=== PATIENT | male | born 1940 | race African-American/Black ===

== ENCOUNTER 2017-02-18 14:38 | Emergency (ER) | payer OTHER ==
[~2017-02-18] VITALS: Ht 172.7 cm; Wt 59.0 kg
[~2017-02-18 14:38] MED LIST: ATOR40TA70 PO; CARV12.545 PO; SULF1TAB47 PO; TAMS0.4C31 PO
[2017-02-18] MEDS ORDERED: CLINDAMYCIN 600 MG in DEXTROSE 5% WATER 50 ML IV ONE (19:15)
[2017-02-18] MEDS: SODIUM POLYSTYRENE SULFONATE 15 G/60 ML BOT PO ONE ×3 (20:50→21:50)
[2017-02-18 22:00] VITALS: BP 176/82
== END 2017-02-18 22:07 | disposition home or self-care (01) ==
LOC: ER 15:14
DX: I12.0 Hypertensive chronic kidney disease with stage 5 chronic kidney disease or end stage renal disease (principal); N18.6 End stage renal disease; E78.00 Pure hypercholesterolemia, unspecified; Z88.0 Allergy status to penicillin; Z99.2 Dependence on renal dialysis
CPT/HCPCS: 36415; 80048; 99283; J3490; J7060

== ENCOUNTER 2017-03-29 19:52 | Emergency (ER) | payer OTHER ==
[~2017-03-29] VITALS: Ht 170.2 cm; Wt 68.0 kg
[2017-03-29] MEDS ORDERED: HYDROCODONE/ACETAMINOPHEN 5/325MG TABLET PO ONE (20:45)
[2017-03-29] MEDS ORDERED: MORPHINE SULFATE 4 MG/ML CPJ (NOT FOR IM USE) IV NR (21:15)
[2017-03-29] MEDS ORDERED: KETOROLAC 30MG/ML VIAL IV NR (21:15)
[2017-03-29] MEDS ORDERED: KETAMINE HCL 50 MG/ML 10ML IV ONE (23:30)
[2017-03-29] MEDS ORDERED: PROPOFOL 200MG/20ML VIAL IV ONE (23:30)
[2017-03-30 01:19] VITALS: BP 154/97
== END 2017-03-30 03:20 | disposition home or self-care (01) ==
LOC: ER 20:18
DX: S43.085A Other dislocation of left shoulder joint, initial encounter (principal); I10 Essential (primary) hypertension; W01.0XXA Fall on same level from slipping, tripping and stumbling without subsequent striking against object, initial encounter; Y93.89 Activity, other specified; Y99.8 Other external cause status; Y92.89 Other specified places as the place of occurrence of the external cause; Z86.73 Personal history of transient ischemic attack (TIA), and cerebral infarction without residual deficits; Z99.2 Dependence on renal dialysis; Z88.0 Allergy status to penicillin
CPT/HCPCS: 23650; 73030; 96374; 96375; 99152; 99153; 99285; J1885; J2270; J3490; J7030; J2704; L3670

== ENCOUNTER 2018-03-23 14:06 | Inpatient (IN) | payer MEDICARE, OTHER ==
[~2018-03-23] VITALS: Ht 170.2 cm; Wt 55.9 kg
[2018-03-23] MEDS ORDERED: SODIUM CHLORIDE 0.9% 1,000 ML IV ONE (14:33)
[2018-03-23] MEDS ORDERED: LEVOFLOXACIN 750MG PREMIX 150 ML IV ONE ×2 (14:45→20:30)
[2018-03-23] MEDS ORDERED: VANCOMYCIN 1 G PREMIX 200 ML IV ONE (14:45)
[2018-03-23 15:51] LABS: CHLORIDE 116 mEq/L (98-107)
[2018-03-23 15:53] LABS: HEMATOCRIT. 39.9 % (42.0-52.0); HEMOGLOBIN. 12.8 g/dL (14.0-18.0); MEAN CORPUSCULAR VOLUME 90.3 fL (80.0-94.0); MEAN PLATELET VOLUME 8.7 fl (7.4-10.4); PLATELET 129 x1000/uL (130-400); RED BLOOD CELL COUNT 4.42 mill/uL (4.7-6.1); RED CELL DISTRIBUTION WIDTH 16.3 % (11.6-14.6)
[2018-03-23 15:54] LABS: INR 1.1
[2018-03-23 15:59] LABS: ETHANOL BLOOD < 10 mg/dL
[2018-03-23 16:02] LABS: CREATINE KINASE 218 IU/L (39-308)
[2018-03-23] MEDS ORDERED: CALCIUM CHLORIDE 1GM/10ML SYR IV ONE (16:15)
[2018-03-23] MEDS ORDERED: SODIUM BICARBONATE 8.4% 1 MEQ/ML 50ML SYR IV ONE (16:15)
[2018-03-23] MEDS ORDERED: SODIUM POLYSTYRENE SULFONATE 15 G/60 ML BOT PO ONE (16:15)
[2018-03-23 16:39] LABS: PLATELET ESTIMATE SLIGHTLY DECREASED
[2018-03-23] MEDS ORDERED: CLONIDINE 0.1MG TABLET PO PRN (17:45)
[2018-03-23] MEDS ORDERED: GUAIFENESIN 200MG/10ML SUGAR FREE UDC PO PRN (17:45)
[2018-03-23] MEDS ORDERED: LORAZEPAM 0.5MG TABLET PO PRN (17:45)
[2018-03-23] MEDS ORDERED: MAGNESIUM/ALUMINUM HYDROXIDE/SIMETHICONE 30ML UDC PO PRN (17:45)
[2018-03-23] MEDS ORDERED: DIPHENHYDRAMINE 50MG/ML VIAL IV PRN (17:45)
[2018-03-23] MEDS ORDERED: ACETAMINOPHEN 650MG SUPP PR PRN (17:45)
[2018-03-23] MEDS ORDERED: NA PHOS,M-B/NA PHOS,DI-BA ENEMA 118ML PR PRN (17:45)
[2018-03-23] MEDS ORDERED: ONDANSETRON HCL 4MG/2ML INJ IV PRN (17:45)
[2018-03-23 18:37] LABS: BG BASE EXCESS -9.2 mmol/L (-2.0-2.0); BG CARBOXYHEMOGLOBIN 0.3 % (0.5-1.5); BG DEOXYHEMOGLOBIN 1.9 % (0.0-5.0); BG FRACTION INSPIRED OXYGEN 21; BG METHEMOGLOBIN 0.3 % (0.0-1.5); BG OXYGEN SATURATION 98.1 % (92.0-98.5); BG OXYHEMOGLOBIN 97.5 % (94.0-97.0); BG PCO2 38.5 mmHg (35.0-45.0); BG PH 7.264 (7.350-7.450); BG SAMPLE SITE RIGHT BRACHIAL; BG TOTAL HEMOGLOBIN 10.4 g/dL (12.0-18.0); BG VENT MODE ROOM AIR
[2018-03-23] MEDS ORDERED: SODIUM POLYSTYRENE SULFONATE 15 G/60 ML BOT PR ONE (19:00)
[2018-03-23] MEDS ORDERED: SODIUM POLYSTYRENE SULFONATE 15 G/60 ML BOT PR NR (20:45)
[2018-03-24] VITALS (11 sets, daily range): BP systolic 89–150; BP diastolic 44–93
[2018-03-24] MEDS ORDERED: DEXT 5%/0.45% NACL 1000ML 1,000 ML IV SCH
[2018-03-24 01:02] LABS: BG CARBOXYHEMOGLOBIN 0.3 % (0.5-1.5); BG DEOXYHEMOGLOBIN 2.4 % (0.0-5.0); BG FRACTION INSPIRED OXYGEN 21; BG HCO3 ACT 15.6 mmol/L (22.0-26.0); BG METHEMOGLOBIN 0.2 % (0.0-1.5); BG OXYGEN SATURATION 97.6 % (92.0-98.5); BG OXYHEMOGLOBIN 97.1 % (94.0-97.0); BG PCO2 37.7 mmHg (35.0-45.0); BG PH 7.235 (7.350-7.450); BG PO2 113.7 mmHg (75.0-100.0); BG SAMPLE SITE LEFT RADIAL; BG TOTAL HEMOGLOBIN 10.4 g/dL (12.0-18.0); BG VENT MODE ROOM AIR
[2018-03-24 07:27] LABS: CHLORIDE 120 mEq/L (98-107)
[2018-03-24 07:28] LABS: HEMATOCRIT. 31.7 % (42.0-52.0); HEMOGLOBIN. 10.2 g/dL (14.0-18.0); MEAN CORPUSCULAR HEMOGLOBIN 29.1 pg (28.0-32.0); MEAN CORPUSCULAR VOLUME 90.2 fL (80.0-94.0); MEAN PLATELET VOLUME 8.9 fl (7.4-10.4); PLATELET 118 x1000/uL (130-400); RED BLOOD CELL COUNT 3.51 mill/uL (4.7-6.1); RED CELL DISTRIBUTION WIDTH 16.2 % (11.6-14.6)
[2018-03-24 07:41] LABS: T4 FREE 1.06 ng/dL (0.76-1.46)
[2018-03-24 07:42] LABS: HDL CHOLESTEROL 67 mg/dL (40-59); LDL CHOLESTEROL 55 mg/dL (5-100)
[2018-03-24] MEDS: PANTOPRAZOLE SODIUM 40 MG/VIAL IV SCH (09:12)
[2018-03-24] MEDS: HYDROCODONE/ACETAMINOPHEN 5/325MG TABLET PO PRN (11:08)
[2018-03-24] MEDS: LEVOTHYROXINE SODIUM 25MCG TABLET PO SCH (13:45)
[2018-03-24] MEDS: DEXTROSE 5% WATER 1,000 ML IV SCH (14:00)
[2018-03-24 14:11] LABS: NUCLEATED RED BLOOD CELLS 1 /100 WBC; PLATELET ESTIMATE DECREASED
[2018-03-24 14:24] LABS: BG BASE EXCESS -10.1 mmol/L (-2.0-2.0); BG DEOXYHEMOGLOBIN 2.9 % (0.0-5.0); BG HCO3 ACT 16.1 mmol/L (22.0-26.0); BG METHEMOGLOBIN 0.1 % (0.0-1.5); BG OXYGEN SATURATION 97.1 % (92.0-98.5); BG PCO2 36.7 mmHg (35.0-45.0); BG PO2 107.8 mmHg (75.0-100.0); BG SAMPLE SITE LEFT RADIAL; BG TOTAL HEMOGLOBIN 9.8 g/dL (12.0-18.0); BG VENT MODE ROOM AIR
[2018-03-24] MEDS ORDERED: SODIUM BICARBONATE 8.4% 1 MEQ/ML 50ML SYR IV NR (15:15)
[2018-03-24] MEDS ORDERED: VANCOMYCIN 1 G PREMIX 200 ML IV NR (18:45)
[2018-03-24] MEDS ORDERED: SODIUM CHLORIDE 0.9% 250 ML IV ONE (19:52)
[2018-03-24 20:52] LABS: CREATINE KINASE MB FRACTION 11.5 ng/mL (0.5-3.6)
[2018-03-25] VITALS (17 sets, daily range): BP systolic 103–156; BP diastolic 53–92
[2018-03-25] MEDS: LEVOTHYROXINE SODIUM 25MCG TABLET PO SCH (06:22)
[2018-03-25 07:09] LABS: BG BASE EXCESS -7.5 mmol/L (-2.0-2.0); BG CARBOXYHEMOGLOBIN 0.8 % (0.5-1.5); BG DEOXYHEMOGLOBIN 4.7 % (0.0-5.0); BG HCO3 ACT 17.1 mmol/L (22.0-26.0); BG METHEMOGLOBIN 0.4 % (0.0-1.5); BG OXYGEN SATURATION 95.2 % (92.0-98.5); BG OXYHEMOGLOBIN 94.1 % (94.0-97.0); BG PCO2 31.4 mmHg (35.0-45.0); BG PH 7.355 (7.350-7.450); BG PO2 79.2 mmHg (75.0-100.0); BG SAMPLE SITE LEFT RADIAL; BG TOTAL HEMOGLOBIN 8.3 g/dL (12.0-18.0); BG VENT MODE ROOM AIR
[2018-03-25 07:23] LABS: HEMATOCRIT 25.2 % (42.0-52.0); HEMOGLOBIN 8.2 g/dL (14.0-18.0); MEAN CORPUSCULAR HEMOGLOBIN 29.1 pg (28.0-32.0); MEAN CORPUSCULAR VOLUME 89.6 fL (80.0-94.0); PLATELET 106 x1000/uL (130-400); RED BLOOD CELL COUNT 2.81 mill/uL (4.7-6.1); RED CELL DISTRIBUTION WIDTH 16.3 % (11.6-14.6)
[2018-03-25 07:38] LABS: INR 1.3; PARTIAL THROMBOPLASTIN TIME 51.2 sec (23.4-31.0); PROTHROMBIN TIME 12.7 sec (9.1-11.1)
[2018-03-25 07:47] LABS: PHOSPHORUS 3.1 mg/dL (2.5-4.9)
[2018-03-25] MEDS: PANTOPRAZOLE SODIUM 40 MG/VIAL IV SCH (08:32)
[2018-03-25] MEDS: DEXTROSE 5% WATER 1,000 ML IV SCH (08:34)
[2018-03-25] MEDS ORDERED: LEVOFLOXACIN 250MG PREMIX 50 ML IV SCH (21:00)
[2018-03-25] MEDS ORDERED: SODIUM HYPOCHLORITE 0.125% 473ML SOLUTION TOP SCH (21:00)
[2018-03-25] MEDS: SODIUM HYPOCHLORITE 0.125% 473ML SOLUTION TOP SCH (21:32)
[2018-03-25] MEDS: LEVOFLOXACIN 250MG PREMIX 50 ML IV SCH (21:33)
[2018-03-25] MEDS: HYDROCODONE/ACETAMINOPHEN 5/325MG TABLET PO PRN (23:05)
[2018-03-26] VITALS (12 sets, daily range): BP systolic 131–155; BP diastolic 74–92
[2018-03-26] MEDS: LEVOTHYROXINE SODIUM 25MCG TABLET PO SCH (05:55)
[2018-03-26] MEDS: DEXTROSE 5% WATER 1,000 ML IV SCH (05:55)
[2018-03-26 06:59] LABS: HEMATOCRIT 31.7 % (42.0-52.0); HEMOGLOBIN 10.3 g/dL (14.0-18.0); MEAN CORPUSCULAR HEMOGLOBIN 29.1 pg (28.0-32.0); MEAN CORPUSCULAR VOLUME 89.7 fL (80.0-94.0); PLATELET 82 x1000/uL (130-400); RED BLOOD CELL COUNT 3.53 mill/uL (4.7-6.1); RED CELL DISTRIBUTION WIDTH 16.6 % (11.6-14.6)
[2018-03-26] MEDS: PANTOPRAZOLE SODIUM 40 MG/VIAL IV SCH (08:50)
[2018-03-26 09:27] LABS: BG BASE EXCESS -7.7 mmol/L (-2.0-2.0); BG DEOXYHEMOGLOBIN 1.6 % (0.0-5.0); BG FRACTION INSPIRED OXYGEN 21; BG HCO3 ACT 15.5 mmol/L (22.0-26.0); BG METHEMOGLOBIN 0.3 % (0.0-1.5); BG OXYGEN SATURATION 98.4 % (92.0-98.5); BG OXYHEMOGLOBIN 98.1 % (94.0-97.0); BG PCO2 24.8 mmHg (35.0-45.0); BG PH 7.414 (7.350-7.450); BG SAMPLE SITE LEFT RADIAL; BG VENT MODE ROOM AIR
[2018-03-26] MEDS ORDERED: FUROSEMIDE 20MG/2ML VIAL IVP NR (13:00)
[2018-03-26] MEDS: SODIUM HYPOCHLORITE 0.125% 473ML SOLUTION TOP SCH ×2 (13:58→22:14)
[2018-03-26] MEDS: CITRIC ACID/SODIUM CITRATE SOLN 15ML UDC PO SCH ×2 (13:58→17:43)
[2018-03-26] MEDS: HYDROCODONE/ACETAMINOPHEN 5/325MG TABLET PO PRN (13:59)
[2018-03-27] VITALS (12 sets, daily range): BP systolic 112–148; BP diastolic 57–95
[2018-03-27] MEDS: DEXTROSE 5% WATER 1,000 ML IV SCH (02:19)
[2018-03-27] MEDS: LEVOTHYROXINE SODIUM 25MCG TABLET PO SCH (06:38)
[2018-03-27 07:53] LABS: HEMATOCRIT. 33.9 % (42.0-52.0); HEMOGLOBIN. 10.9 g/dL (14.0-18.0); MEAN CORPUSCULAR HEMOGLOBIN 28.8 pg (28.0-32.0); MEAN CORPUSCULAR VOLUME 89.8 fL (80.0-94.0); MEAN PLATELET VOLUME 8.3 fl (7.4-10.4); PLATELET 80 x1000/uL (130-400); RED BLOOD CELL COUNT 3.77 mill/uL (4.7-6.1); RED CELL DISTRIBUTION WIDTH 16.4 % (11.6-14.6)
[2018-03-27 08:42] LABS: CHLORIDE 111 mEq/L (98-107)
[2018-03-27] MEDS: CITRIC ACID/SODIUM CITRATE SOLN 15ML UDC PO SCH ×4 (09:00→22:43)
[2018-03-27] MEDS: PANTOPRAZOLE SODIUM 40 MG/VIAL IV SCH (09:00)
[2018-03-27] MEDS: SODIUM HYPOCHLORITE 0.125% 473ML SOLUTION TOP SCH ×2 (09:00→21:26)
[2018-03-27] MEDS: IPRATROPIUM/ALBUTEROL 0.5-3(2.5)MG/3ML NEB INH PRN (18:28)
[2018-03-27 19:11] LABS: PLATELET ESTIMATE DECREASED
[2018-03-27] MEDS: LEVOFLOXACIN 250MG PREMIX 50 ML IV SCH (21:26)
[2018-03-28] VITALS (14 sets, daily range): BP systolic 112–134; BP diastolic 61–87
[2018-03-28] MEDS: IPRATROPIUM/ALBUTEROL 0.5-3(2.5)MG/3ML NEB INH PRN (00:31)
[2018-03-28] MEDS: LEVOTHYROXINE SODIUM 25MCG TABLET PO SCH (06:15)
[2018-03-28 08:01] LABS: HEMATOCRIT 33.5 % (42.0-52.0); HEMOGLOBIN 10.8 g/dL (14.0-18.0); MEAN CORPUSCULAR VOLUME 89.8 fL (80.0-94.0); PLATELET 79 x1000/uL (130-400); RED BLOOD CELL COUNT 3.72 mill/uL (4.7-6.1); RED CELL DISTRIBUTION WIDTH 16.4 % (11.6-14.6)
[2018-03-28] MEDS: SODIUM HYPOCHLORITE 0.125% 473ML SOLUTION TOP SCH ×2 (08:01→21:00)
[2018-03-28] MEDS: PANTOPRAZOLE SODIUM 40 MG/VIAL IV SCH (08:11)
[2018-03-28] MEDS: CITRIC ACID/SODIUM CITRATE SOLN 15ML UDC PO SCH ×3 (08:11→17:39)
[2018-03-28] MEDS ORDERED: VANCOMYCIN 750 MG PREMIX 150 ML IV SCH (14:00)
[2018-03-29] VITALS (13 sets, daily range): BP systolic 103–140; BP diastolic 58–82
[2018-03-29] MEDS: LEVOTHYROXINE SODIUM 25MCG TABLET PO SCH (05:36)
[2018-03-29 08:12] LABS: HEMATOCRIT 30.7 % (42.0-52.0); HEMOGLOBIN 10.1 g/dL (14.0-18.0); MEAN CORPUSCULAR HEMOGLOBIN 28.9 pg (28.0-32.0); MEAN CORPUSCULAR VOLUME 87.7 fL (80.0-94.0); PLATELET 79 x1000/uL (130-400); RED CELL DISTRIBUTION WIDTH 16.1 % (11.6-14.6)
[2018-03-29] MEDS: CITRIC ACID/SODIUM CITRATE SOLN 15ML UDC PO SCH ×3 (08:53→16:39)
[2018-03-29] MEDS: PANTOPRAZOLE SODIUM 40 MG/VIAL IV SCH (08:53)
[2018-03-29] MEDS: THIAMINE HCL 100MG TABLET PO SCH (08:54)
[2018-03-29] MEDS: DOCUSATE SODIUM 100MG CAPSULE PO PRN (08:54)
[2018-03-29] MEDS: ASCORBIC ACID 500 MG TABLET PO SCH (08:54)
[2018-03-29] MEDS: SODIUM HYPOCHLORITE 0.125% 473ML SOLUTION TOP SCH ×2 (09:00→21:40)
[2018-03-29] MEDS: ZINC SULFATE 220 MG ( 50 ) CAPSULE PO SCH (10:28)
[2018-03-29] MEDS: ACETAMINOPHEN 325MG TABLET PO PRN ×2 (12:11→17:58)
[2018-03-29] MEDS: FUROSEMIDE 40MG/4ML VIAL IVP SCH (13:26)
[2018-03-29] MEDS: LEVOFLOXACIN 250MG PREMIX 50 ML IV SCH (20:21)
[2018-03-30] VITALS (13 sets, daily range): BP systolic 102–127; BP diastolic 52–77
[2018-03-30] MEDS: LEVOTHYROXINE SODIUM 25MCG TABLET PO SCH (05:25)
[2018-03-30 06:54] LABS: HEMATOCRIT 31.1 % (42.0-52.0); HEMOGLOBIN 10.4 g/dL (14.0-18.0); MEAN CORPUSCULAR HEMOGLOBIN 29.2 pg (28.0-32.0); MEAN CORPUSCULAR VOLUME 87.6 fL (80.0-94.0); PLATELET 72 x1000/uL (130-400); RED BLOOD CELL COUNT 3.55 mill/uL (4.7-6.1); RED CELL DISTRIBUTION WIDTH 15.8 % (11.6-14.6)
[2018-03-30] MEDS: FUROSEMIDE 40MG/4ML VIAL IVP SCH ×2 (08:32→17:15)
[2018-03-30] MEDS: ZINC SULFATE 220 MG ( 50 ) CAPSULE PO SCH (08:32)
[2018-03-30] MEDS: PANTOPRAZOLE SODIUM 40 MG/VIAL IV SCH (08:32)
[2018-03-30] MEDS: THIAMINE HCL 100MG TABLET PO SCH (08:32)
[2018-03-30] MEDS: CITRIC ACID/SODIUM CITRATE SOLN 15ML UDC PO SCH ×3 (08:32→17:00)
[2018-03-30] MEDS: SODIUM HYPOCHLORITE 0.125% 473ML SOLUTION TOP SCH ×2 (08:32→21:00)
[2018-03-30] MEDS: ASCORBIC ACID 500 MG TABLET PO SCH (08:32)
[2018-03-30] MEDS: ACETAMINOPHEN 325MG TABLET PO PRN ×2 (15:20→21:38)
[2018-03-31 04:00] VITALS: BP 123/65
[2018-03-31] MEDS: FUROSEMIDE 40MG/4ML VIAL IVP SCH ×2 (06:48→17:51)
[2018-03-31] MEDS: THIAMINE HCL 100MG TABLET PO SCH (09:04)
[2018-03-31] MEDS: ZINC SULFATE 220 MG ( 50 ) CAPSULE PO SCH (09:04)
[2018-03-31] MEDS: LEVOTHYROXINE SODIUM 25MCG TABLET PO SCH (09:04)
[2018-03-31] MEDS: CITRIC ACID/SODIUM CITRATE SOLN 15ML UDC PO SCH ×3 (09:05→17:52)
[2018-03-31] MEDS: ASCORBIC ACID 500 MG TABLET PO SCH (09:05)
[2018-03-31] MEDS: PANTOPRAZOLE SODIUM 40 MG/VIAL IV SCH (09:14)
[2018-03-31] MEDS: SODIUM HYPOCHLORITE 0.125% 473ML SOLUTION TOP SCH ×2 (09:15→22:38)
[2018-03-31 12:21] VITALS: BP 113/60
[2018-03-31] MEDS: ACETAMINOPHEN 325MG TABLET PO PRN (13:31)
[2018-03-31 16:08] VITALS: BP 133/54
[2018-03-31 20:00] VITALS: BP 130/67
[2018-03-31] MEDS: LEVOFLOXACIN 250MG TABLET PO SCH (21:59)
[2018-04-01 00:34] VITALS: BP 133/69
[2018-04-01 04:00] VITALS: BP 133/58
[2018-04-01] MEDS: ACETAMINOPHEN 325MG TABLET PO PRN ×2 (06:38→15:37)
[2018-04-01] MEDS: FUROSEMIDE 40MG/4ML VIAL IVP SCH ×2 (06:38→17:20)
[2018-04-01] MEDS: LEVOTHYROXINE SODIUM 25MCG TABLET PO SCH (06:40)
[2018-04-01 06:45] LABS: HEMATOCRIT 34.2 % (42.0-52.0); HEMOGLOBIN 11.1 g/dL (14.0-18.0); MEAN CORPUSCULAR HEMOGLOBIN 28.7 pg (28.0-32.0); MEAN CORPUSCULAR VOLUME 88.8 fL (80.0-94.0); RED BLOOD CELL COUNT 3.86 mill/uL (4.7-6.1); RED CELL DISTRIBUTION WIDTH 15.9 % (11.6-14.6)
[2018-04-01 08:00] VITALS: BP 131/68
[2018-04-01] MEDS: THIAMINE HCL 100MG TABLET PO SCH (09:23)
[2018-04-01] MEDS: ASCORBIC ACID 500 MG TABLET PO SCH (09:23)
[2018-04-01] MEDS: CITRIC ACID/SODIUM CITRATE SOLN 15ML UDC PO SCH ×3 (09:23→17:22)
[2018-04-01] MEDS: ZINC SULFATE 220 MG ( 50 ) CAPSULE PO SCH (09:23)
[2018-04-01] MEDS: PANTOPRAZOLE SODIUM 40 MG/VIAL IV SCH (09:25)
[2018-04-01] MEDS: SODIUM HYPOCHLORITE 0.125% 473ML SOLUTION TOP SCH ×2 (10:33→21:20)
[2018-04-01 12:20] VITALS: BP 102/52
[2018-04-01 13:32] LABS: PLATELET 101 x1000/uL (130-400)
[2018-04-01 16:00] VITALS: BP 120/73
[2018-04-01 20:00] VITALS: BP 119/53
[2018-04-02] VITALS (7 sets, daily range): BP systolic 104–133; BP diastolic 51–71
[2018-04-02] MEDS: ACETAMINOPHEN 325MG TABLET PO PRN (01:51)
[2018-04-02] MEDS: FUROSEMIDE 40MG/4ML VIAL IVP SCH ×2 (06:23→16:29)
[2018-04-02 07:05] LABS: HEMATOCRIT 31.4 % (42.0-52.0); HEMOGLOBIN 10.5 g/dL (14.0-18.0); MEAN CORPUSCULAR HEMOGLOBIN 29.1 pg (28.0-32.0); MEAN CORPUSCULAR VOLUME 87.4 fL (80.0-94.0); PLATELET 126 x1000/uL (130-400); RED BLOOD CELL COUNT 3.59 mill/uL (4.7-6.1); RED CELL DISTRIBUTION WIDTH 15.9 % (11.6-14.6)
[2018-04-02] MEDS: THIAMINE HCL 100MG TABLET PO SCH (08:06)
[2018-04-02] MEDS: CITRIC ACID/SODIUM CITRATE SOLN 15ML UDC PO SCH ×3 (08:06→17:00)
[2018-04-02] MEDS: ZINC SULFATE 220 MG ( 50 ) CAPSULE PO SCH (08:06)
[2018-04-02] MEDS: PANTOPRAZOLE SODIUM 40 MG/VIAL IV SCH (08:06)
[2018-04-02] MEDS: LEVOTHYROXINE SODIUM 25MCG TABLET PO SCH (08:06)
[2018-04-02] MEDS: ASCORBIC ACID 500 MG TABLET PO SCH (08:06)
[2018-04-02] MEDS: SODIUM HYPOCHLORITE 0.125% 473ML SOLUTION TOP SCH ×2 (08:07→20:41)
[2018-04-02] MEDS: LEVOFLOXACIN 250MG TABLET PO SCH (20:40)
[2018-04-03] VITALS: BP 135/76
[2018-04-03 04:00] VITALS: BP 145/71
[2018-04-03 06:15] LABS: HEMATOCRIT 34.5 % (42.0-52.0); HEMOGLOBIN 11.4 g/dL (14.0-18.0); MEAN CORPUSCULAR HEMOGLOBIN 28.9 pg (28.0-32.0); MEAN CORPUSCULAR VOLUME 87.8 fL (80.0-94.0); PLATELET 80 x1000/uL (130-400); RED BLOOD CELL COUNT 3.93 mill/uL (4.7-6.1); RED CELL DISTRIBUTION WIDTH 15.7 % (11.6-14.6)
[2018-04-03] MEDS: LEVOTHYROXINE SODIUM 25MCG TABLET PO SCH (07:40)
[2018-04-03 08:00] VITALS: BP 125/53
[2018-04-03] MEDS: ASCORBIC ACID 500 MG TABLET PO SCH ×2 (09:00→09:57)
[2018-04-03] MEDS: SODIUM HYPOCHLORITE 0.125% 473ML SOLUTION TOP SCH ×2 (09:57→21:16)
[2018-04-03] MEDS: PANTOPRAZOLE SODIUM 40 MG/VIAL IV SCH (09:57)
[2018-04-03] MEDS: ZINC SULFATE 220 MG ( 50 ) CAPSULE PO SCH ×2 (09:57→10:09)
[2018-04-03] MEDS: CITRIC ACID/SODIUM CITRATE SOLN 15ML UDC PO SCH ×3 (09:57→17:00)
[2018-04-03] MEDS: THIAMINE HCL 100MG TABLET PO SCH ×2 (09:57→10:08)
[2018-04-03 12:00] VITALS: BP 125/59
[2018-04-03 20:00] VITALS: BP 127/56
[2018-04-04] VITALS (7 sets, daily range): BP systolic 112–136; BP diastolic 45–87
[2018-04-04] MEDS: ZINC SULFATE 220 MG ( 50 ) CAPSULE PO SCH (08:56)
[2018-04-04] MEDS: SODIUM HYPOCHLORITE 0.125% 473ML SOLUTION TOP SCH (08:57)
[2018-04-04] MEDS: LEVOTHYROXINE SODIUM 25MCG TABLET PO SCH (08:57)
[2018-04-04] MEDS: ASCORBIC ACID 500 MG TABLET PO SCH (08:57)
[2018-04-04] MEDS: PANTOPRAZOLE SODIUM 40 MG/VIAL IV SCH (08:57)
[2018-04-04] MEDS: THIAMINE HCL 100MG TABLET PO SCH (08:57)
[2018-04-04] MEDS: CITRIC ACID/SODIUM CITRATE SOLN 15ML UDC PO SCH ×3 (08:57→18:13)
[2018-04-04] MEDS: ACETAMINOPHEN 325MG TABLET PO PRN (14:01)
[2018-04-04] MEDS: LEVOFLOXACIN 250MG TABLET PO SCH (21:03)
[2018-04-05 04:00] VITALS: BP 122/48
[2018-04-05] MEDS: ACETAMINOPHEN 325MG TABLET PO PRN (06:52)
[2018-04-05 06:56] LABS: HEMATOCRIT 27.1 % (42.0-52.0); HEMOGLOBIN 8.8 g/dL (14.0-18.0); MEAN CORPUSCULAR HEMOGLOBIN 28.7 pg (28.0-32.0); PLATELET 168 x1000/uL (130-400); RED BLOOD CELL COUNT 3.08 mill/uL (4.7-6.1); RED CELL DISTRIBUTION WIDTH 15.7 % (11.6-14.6)
[2018-04-05 08:00] VITALS: BP 118/62
[2018-04-05] MEDS: ZINC SULFATE 220 MG ( 50 ) CAPSULE PO SCH (08:57)
[2018-04-05] MEDS: ASCORBIC ACID 500 MG TABLET PO SCH (08:57)
[2018-04-05] MEDS: DOCUSATE SODIUM 100MG CAPSULE PO PRN ×2 (08:57→17:08)
[2018-04-05] MEDS: CITRIC ACID/SODIUM CITRATE SOLN 15ML UDC PO SCH ×3 (08:57→17:08)
[2018-04-05] MEDS: PANTOPRAZOLE SODIUM 40 MG/VIAL IV SCH (08:57)
[2018-04-05] MEDS: THIAMINE HCL 100MG TABLET PO SCH (08:57)
[2018-04-05] MEDS: LEVOTHYROXINE SODIUM 25MCG TABLET PO SCH (08:57)
[2018-04-05 12:00] VITALS: BP 110/74
[2018-04-05 13:57] LABS: HEMATOCRIT 30.2 % (42.0-52.0); HEMOGLOBIN 9.7 g/dL (14.0-18.0)
[2018-04-05 16:00] VITALS: BP 111/79
[2018-04-05 20:00] VITALS: BP 131/47
[2018-04-06 00:19] VITALS: BP 145/65
[2018-04-06 04:00] VITALS: BP 100/59
[2018-04-06] MEDS: LEVOTHYROXINE SODIUM 25MCG TABLET PO SCH (07:40)
[2018-04-06 07:49] LABS: HEMATOCRIT 29.8 % (42.0-52.0); HEMOGLOBIN 9.8 g/dL (14.0-18.0); MEAN CORPUSCULAR HEMOGLOBIN 29.2 pg (28.0-32.0); MEAN CORPUSCULAR VOLUME 88.7 fL (80.0-94.0); PLATELET 202 x1000/uL (130-400); RED BLOOD CELL COUNT 3.36 mill/uL (4.7-6.1); RED CELL DISTRIBUTION WIDTH 15.6 % (11.6-14.6)
[2018-04-06 08:00] VITALS: BP 118/68
[2018-04-06 08:48] VITALS: BP 118/68
[2018-04-06] MEDS: ASCORBIC ACID 500 MG TABLET PO SCH (09:00)
[2018-04-06] MEDS: ZINC SULFATE 220 MG ( 50 ) CAPSULE PO SCH (09:00)
[2018-04-06] MEDS: CITRIC ACID/SODIUM CITRATE SOLN 15ML UDC PO SCH (09:00)
[2018-04-06] MEDS: PANTOPRAZOLE SODIUM 40 MG/VIAL IV SCH (09:00)
[2018-04-06] MEDS: THIAMINE HCL 100MG TABLET PO SCH (09:00)
[2018-04-06 12:38] VITALS: BP 124/58
== END 2018-04-06 12:20 | disposition hospice, home (50) | DRG 871 ==
LOC: ER 14:06 → 3WST 16:24 → EDBEDREQ 16:31 → EDBEDREQSVC 16:31 → SUPCPDRO 17:33 → ENRESERV 20:20 → CANRESERV 20:20 → EDBEDREQTM 20:49 → EDBEDREQSVC 20:49 → ENRESERV 03-24 01:03 → 7WST 03-30 23:00
PROVIDERS: ADMIT Internal Medicine; ATTEND Internal Medicine
PROC: 30233N1 Transfusion of Nonautologous Red Blood Cells into Peripheral Vein, Percutaneous Approach (ICD-10-PCS; principal; 2018-03-25)
DX: A41.50 Gram-negative sepsis, unspecified (principal); I63.9 Cerebral infarction, unspecified; I50.43 Acute on chronic combined systolic (congestive) and diastolic (congestive) heart failure; E43 Unspecified severe protein-calorie malnutrition; G92 Toxic encephalopathy; N18.6 End stage renal disease; J81.0 Acute pulmonary edema; I46.9 Cardiac arrest, cause unspecified; E87.2 Acidosis; I42.9 Cardiomyopathy, unspecified; I13.2 Hypertensive heart and chronic kidney disease with heart failure and with stage 5 chronic kidney disease, or end stage renal disease; Z68.1 Body mass index [BMI] 19.9 or less, adult; Z51.5 Encounter for palliative care; E87.5 Hyperkalemia; E86.0 Dehydration; E78.5 Hyperlipidemia, unspecified; D64.9 Anemia, unspecified; I25.10 Atherosclerotic heart disease of native coronary artery without angina pectoris; E03.9 Hypothyroidism, unspecified; L89.90 Pressure ulcer of unspecified site, unspecified stage; D69.6 Thrombocytopenia, unspecified; R62.7 Adult failure to thrive; R06.03 Acute respiratory distress; Z99.2 Dependence on renal dialysis; Z79.899 Other long term (current) drug therapy; Z88.0 Allergy status to penicillin; Z87.891 Personal history of nicotine dependence; Z95.5 Presence of coronary angioplasty implant and graft
CPT/HCPCS: 36415; 36600; 71045; 80048; 80061; 80076; 80202; 82140; 82375; 82378; 82550; 82553; 82805; 82962; 83036; 83605; 84100; 84134; 84145; 84153; 84439; 84443; 84484; 85014; 85018; 85027; 86850; 86900; 86920; 87077; 87186; 92610; 93005; 93306; 93970; 94640; 96365; 96366; 96375; 97163; 99285; A6261; C1893; C9113; J1940; J1956; J2405; J3370; J3490; J7030; J7050; J7070; J7620; P9016; G0103